=== PATIENT | male | born 1935 | race Caucasian/White ===

== ENCOUNTER 2018-02-18 15:01 | Observation (INO) ==
--- NOTE | 2018-02-18 15:22 | ERNOTE ---
Syncope ER HPI Stated Complaint: STROKE Time Seen by Provider: 02/18/18 15:01 Source: family, EMS Exam Limitations: clinical condition Immunizations: IMMUNIZATION HX Immunizations Up to Date Yes History of Influenza Vaccine No Hx Pneumococcal Vaccination No Allergies/Adverse Reactions: Allergies aspirin Allergy (Mild, Verified 02/18/18 17:17) Hives Home Medications: HOME MEDICATIONS Clopidogrel Bisulfate [Plavix] 75 mg PO DAILY 12/25/17 [Last Taken Unknown] Isosorbide Mononitrate [Imdur] 30 mg PO DAILY 12/25/17 [Last Taken Unknown] Losartan Potassium [Cozaar] 50 mg PO BID 12/25/17 [Last Taken Unknown] Pravastatin Sodium [Pravachol] 80 mg PO DAILY 12/25/17 [Last Taken Unknown] Solifenacin Succinate [Vesicare] 10 mg PO DAILY 12/25/17 [Last Taken Unknown] - History of Present Illness Narrative: EMS reports that patient was eating lunch with his when he collapsed around 14:05 and became unresponsive. On EMs arrival he was only responsive to painful stimilus, resisted insertion of oral airway though, on the ride over here patient slowly started to become more alert, followed some commands but didn't squeeze right hand. Stroke alert was called prior to arrival. Patient was seen in the ER two months ago for collapsing (unwitnessed?) Prior Episodes: Present: single episode today, recent history Activity at time of episode: Present: sitting Character of event: Present: became unresponsive Location of Injury: Present: none Prior Treament: Reports: recently seen, similar symptoms before Review of Systems - Review of Systems Constitutional: Absent: recent illness, chills ENT: Present: no symptoms reported Respiratory: Absent: shortness of breath Cardiology: Absent: chest pain Gastrointestinal/Abdominal: Absent: nausea, abdominal pain Genitourinary: Present: no symptoms reported Musculoskeletal: Absent: back pain, neck pain Neurological: Present: See HPI. Absent: headache Medical History (Last Updated 02/18/18 @ 19:14 by Jami Yi MD) CLL (chronic lymphocytic leukemia) Hyperlipidemia Hypertension Myocardial infarct Surgical History: Surgical History (Last Updated 02/18/18 @ 19:14 by Jami Yi MD) Pacemaker (Acute) History of coronary artery bypass graft x 1 History of colon resection Hx of cholecystectomy Social History: Preferred Language Mexican Physical Exam - Physical Exam General Appearance: Present: wd/wn, alert, no apparent distress Head Exam: Present: normal inspection Eye Exam: Normal inspection: bilateral, PERRL: bilateral, EOMI: bilateral Ears, Nose, Throat: Present: normal pharynx Respiratory: Present: no respiratory distress, normal breath sounds, lungs clear Cardiovascular/Chest: Present: regular rate, rhythm, no murmur Gastrointestinal/Abdominal: Present: nontender, nondistended Male Genitals Exam: Present: other - patient is incontinent of urine Extremity Exam: Present: no edema Neurological Exam: Present: alert, no motor/sensory deficits, facial droop - discret left facial droop (corner of mouth), other - patient follws commands, answers some questions appropiately, then gives the same answer for the next question Skin Exam: Present: normal color, warm/dry ED Progress - Results and Orders Patient's Lab Results:: I have reviewed the patient's lab results. - Vital Signs Patient's Vital Signs:: I have reviewed the patient's vital signs. Vital Signs: Vital Signs 02/18/18 15:02 Temperature 36.6 C Pulse Rate 70 Respiratory Rate 18 Blood Pressure 135/76 O2 Sat by Pulse Oximetry 99 - EKG EKG: unchanged from 12/2017, other - arterial pace EKG EKG read: Interp. by me - CT/Ultrasound CT/Ultrasound Narrative: no acute findings - Progress/Reassessment Progress Note-Subjective: 02/18/18 15:[address] with radiologist: no acute findings 02/18/18 15:47 patient alert, neuro exam normal patient now remembers lunch reports that patient had pacemaker implanted in 07/2107 while they were in [place] as he had recurrent syncopal episodes and HR down to the 30's pacemaker was checked three weeks ago ( through phone by pacemaker company) this is the third syncopal episodes the patient has had since pacemaker placement, was seen after the last one in the ER here two months ago, has followed up with PCP, neurologist and pain doctor since 02/18/18 17:20 discussed test results with patient and , offered admission, agreed patient feels back to normal 02/18/18 17:[address] Polanco,okay to admit for observation for syncope and hyponatremia order serum and urine osmolality, fluid restrictions to 750ml Departure Clinical Impression: Hyponatremia Syncope Qualifiers: Syncope type: unspecified Qualified Code(s): R55 - Syncope and collapse - Departure Disposition: Still a patient Condition: Fair
[2018-02-18 15:40] LABS: Hematocrit 39.4 % (42.0-52.0); Hemoglobin 13.1 gm/dL (13.5-18.0); Mean Cell Volume 91.6 fl (78-100); Mean Corpuscular Hemoglobin 30.5 pg (27-31); Mean Corpuscular Hgb Conc 33.2 g/dl (32-36); Mean Platelet Volume 9.6 fl (8-11.3); Platelet Count 245 K/mm3 (150-450); Red Cell Distribution Width 11.9 % (11.5-14.0); White Blood Count 46.2 K/mm3 (4.0-10.5)
[2018-02-18 15:42] LABS: Prothrombin Time (Patient) 9.9 Seconds (9.0-11.0); Total Cells Counted 100
[2018-02-18 15:44] LABS: INR 0.99 INR (0.90-1.10); Partial Thrombolplastin Time 22.9 Seconds (24-32)
[2018-02-18 15:50] LABS: ALT 21 U/L (19-67); AST 18 U/L (0-48); Albumin * 3.9 gm/dl (3.4-5.0); Alkaline Phosphatase * 45 U/L (50-170); Anion Gap 10.5 mmol/L (6.8-13.8); BUN/Creatinine Ratio 9.6 (9.0-21.6); Blood Urea Nitrogen 11 mg/dL (6-23); Ca. Corrected For Albumin 8.3 mg/dL (8.4-10.2); Calcium * 8.5 mg/dL (7.9-10.9); Carbon Dioxide 28.2 mmol/L (24-32.6); Chloride 91 mmol/L (97-106); Glucose * 121 mg/dL (70-110); Potassium 4.7 mmol/L (3.4-4.6); Sodium 125 mmol/L (132-142); Total Protein 6.5 gm/dL (6.2-8.2)
[2018-02-18 15:54] LABS: Troponin I Less than 0.017 ng/mL (0.00-0.10)
[2018-02-18 16:21] LABS: Atypical (Reactive) Lymph 5 % (0-2); Band 1 % (0-2.0); Lymphocyte 73 % (20-51); Monocyte 2 % (0-9); Neutrophil 19 % (42-75); Neutrophil # 8.8 K/mm3 (1.3-6.0)
[2018-02-18 16:22] LABS: Howell-Jolly Bodies Trace; Smudge Cells 25 /100 WBC (0-0)
[2018-02-18 16:42] LABS: Neutrophil # 8.5 K/mm3 (1.3-6.0); Neutrophil % 18.5 % (42-75.0)
--- NOTE | 2018-02-18 20:14 | HP ---
Chief Complaint - Chief Complaint Date of Service: 02/18/18 Time of Service: 20:14 Chief Complaint: syncope History of Present Illness: Moshe Cook, is an 82-year-old white male, with previous medical history of coronary artery disease status post CABG, CLL, hypertension, hyperlipidemia, pacemaker placement who was admitted on 02/18/2018 because of a syncopal episode. The patient after eating his late lunch passed out and slumped over the table and became unresponsive. The did not notice any abnormal twitchings or movements but did notice that he wet response. when MS came he was respnsove to painful stimulus only. They felt his right hand personal injury specialist was weak and they called a CVA alert. He was passed out for about 15 minutes and started waking up while being transported by the EMS. By the time he came to the emergency room patient was able to answer some questions appropriately and some inappropriately. His CT scan did not show any acute intracranial process. His white blood cell count was up to 46,000, platelet was within normal limits , mild anemia of 13.1, sodium of 125. His EKg showed paced rhythm, CXR showed no acute cardiopulmonary findings. The patient has had several syncopal attacks in the past and a pacemaker was placed for bradycardia in the 30's while hospitalized in [place] because during his hospital stay there for syncope not feces heart rate was running in the 30-35. He however has had another episode of for for syncope . After his pacemaker placement he was seen here in our hospital for syncope and diagnosed with dehydration. His pacemaker was checked 3 weeks ago through the phone by the pacemaker company and was told everything was working good. Since transferring to [place] they have established care with a vertica architect and anatomy professor/oncologist in [place], [place]. Before they placed his pacemaker, he had an MRI in [place] and it showed an old infract. He underwent PT/OT for right sided weakness. Medical History (Last Updated 02/18/18 @ 21:01 by Arely Alarcon RN) CVA (cerebral vascular accident) CLL (chronic lymphocytic leukemia) Hyperlipidemia Hypertension Myocardial infarct Surgical History: Surgical History (Last Updated 02/18/18 @ 19:46 by Arely Alarcon RN) Pacemaker (Acute) Hernia History of coronary artery bypass graft x 1 History of colon resection Hx of cholecystectomy Social History: Preferred Language Panamanian Do you have any latter-day or No cultural preference? Smoking Status Former smoker Alcohol Use sober Drug Use none Review Of Systems (GEN) - Review of Systems Generalized/Overall Review: Present: Weakness. Absent: Chills, Fever EENTM: Absent: Blurred Vision, Nose Congestion Respiratory: Absent: Cough, Shortness of Breath, Wheezing Cardiac: Present: Syncope. Absent: Chest Pain, Edema, Palpitations Abdominal: Absent: Nausea, Vomiting, Abdominal Pain Genitourinary: Absent: Urgency, Frequency Musculoskeletal: Absent: Joint Pain, Back Pain Neurological: Present: Weakness. Absent: Headache, Tingling Immunizations: IMMUNIZATION HX Immunizations Up to Date No History of Influenza Vaccine No Hx Pneumococcal Vaccination No Allergies/Adverse Reactions: Allergies Allergy/AdvReac Type Severity Reaction Status Date / Time aspirin Allergy Mild Hives Verified 02/18/18 17:17 Home Medications: HOME MEDICATIONS Clopidogrel Bisulfate [Plavix] 75 mg PO QAM 12/25/17 [Last Taken Unknown] Isosorbide Mononitrate [Imdur] 30 mg PO QAM 12/25/17 [Last Taken Unknown] Losartan Potassium [Cozaar] 50 mg PO BID 12/25/17 [Last Taken Unknown] Pravastatin Sodium [Pravachol] 80 mg PO QPM 12/25/17 [Last Taken Unknown] Solifenacin Succinate [Vesicare] 10 mg PO QPM 12/25/17 [Last Taken Unknown] Nitroglycerin 0.4 mg SL PRN 02/18/18 [Last Taken Unknown] Exam - Exam Vital Signs: Vital Signs - Last Taken Temp 36.8 C 02/18/18 19:30 Pulse 92 02/18/18 19:30 Resp 18 02/18/18 19:30 BP 112/54 02/18/18 19:30 Pulse Ox 100 02/18/18 19:30 Constitutional: Present: Alert, Oriented x3, Cooperative, Elderly ENT Exam: Present: hearing grossly normal Eye Exam: bilateral eye: normal inspection, PERRL, EOMI Neck: Present: supple Respiratory: Present: normal breath sounds, No rales, No wheezing Cardiovascular/Chest: Present: regular rate, rhythm, no JVD, no murmur Abdomen: Present: Normal bowel sounds, soft, nontender, nondistended Extremity: Present: no pedal edema, no calf tenderness Neurologic: Present: pharmacy technology instructor II-XII nml as tested, no motor/sensory deficits - Grade 4+/5 right UE/LE, Grade 5/5 left UE/LE, oriented x 3 Diagnostic Studies: Abnormal Lab Results 02/18/18 02/18/18 02/18/18 Range/Units 15:20 15:20 15:20 WBC 46.2 H (4.0-10.5) K/mm3 RBC 4.30 L (4.7-6.0) M/mm3 Hgb 13.1 L (13.5-18.0) gm/dL Hct 39.4 L (42.0-52.0) % Immature Gran # (Auto) 0.15 H (0.000-0.0310) K/mm3 Neutrophils % 18.5 L (42-75.0) % Neutrophils % (Manual) 19 L (42-75) % Lymphocytes % 78.9 H (20-51) % Lymphocytes % (Manual) 73 H (20-51) % Neutrophils # 8.5 H (1.3-6.0) K/mm3 Neutrophils # (Manual) 8.8 H (1.3-6.0) K/mm3 Lymphocytes # 36.27 H (1.5-3.5) k/mm3 Lymphocytes # (Manual) 33.7 H (1.5-3.5) k/mm3 Atypic/Reactive Lymphs 5 H (0-2) % Smudge Cells 25 H (0-0) /100 WBC Retic Hgb Content 37.1 H (29-35) pg PTT (Zeinab) 22.9 L (24-32) Seconds Sodium 125 L (132-142) mmol/L Plasma Sodium 125 L (130-142) mmol/L Potassium 4.7 H (3.4-4.6) mmol/L Chloride 91 L (97-106) mmol/L Random Glucose 121 H (70-110) mg/dL Calcium Adj for Albumin 8.3 L (8.4-10.2) mg/dL Alkaline Phosphatase 45 L (50-170) U/L Procalcitonin (0.05-0.50) ng/mL 02/18/18 Range/Units 15:20 WBC (4.0-10.5) K/mm3 RBC (4.7-6.0) M/mm3 Hgb (13.5-18.0) gm/dL Hct (42.0-52.0) % Immature Gran # (Auto) (0.000-0.0310) K/mm3 Neutrophils % (42-75.0) % Neutrophils % (Manual) (42-75) % Lymphocytes % (20-51) % Lymphocytes % (Manual) (20-51) % Neutrophils # (1.3-6.0) K/mm3 Neutrophils # (Manual) (1.3-6.0) K/mm3 Lymphocytes # (1.5-3.5) k/mm3 Lymphocytes # (Manual) (1.5-3.5) k/mm3 Atypic/Reactive Lymphs (0-2) % Smudge Cells (0-0) /100 WBC Retic Hgb Content (29-35) pg PTT (Mora) (24-32) Seconds Sodium (132-142) mmol/L Plasma Sodium (130-142) mmol/L Potassium (3.4-4.6) mmol/L Chloride (97-106) mmol/L Random Glucose (70-110) mg/dL Calcium Adj for Albumin (8.4-10.2) mg/dL Alkaline Phosphatase (50-170) U/L Procalcitonin Less than 0.05 L (0.05-0.50) ng/mL Laboratory Results WBC 46.2 K/mm3 (4.0-10.5) H 02/18/18 15:20 RBC 4.30 M/mm3 (4.7-6.0) L 02/18/18 15:20 Hgb 13.1 gm/dL (13.5-18.0) L 02/18/18 15:20 Hct 39.4 % (42.0-52.0) L 02/18/18 15:20 MCV 91.6 fl (78-100) 02/18/18 15:20 MCH 30.5 pg (27-31) 02/18/18 15:20 MCHC 33.2 g/dl (32-36) 02/18/18 15:20 RDW 11.9 % (11.5-14.0) 02/18/18 15:20 Plt Count 245 K/mm3 (150-450) 02/18/18 15:20 MPV 9.6 fl (8-11.3) 02/18/18 15:20 Immature Gran % (Auto) 0.30 % (0.001-0.429) 02/18/18 15:20 Immature Gran # (Auto) 0.15 K/mm3 (0.000-0.0310) H 02/18/18 15:20 Neutrophils % 18.5 % (42-75.0) L 02/18/18 15:20 Neutrophils % (Manual) 19 % (42-75) L 02/18/18 15:20 Band Neuts % (Manual) 1 % (0-2.0) 02/18/18 15:20 Lymphocytes % 78.9 % (20-51) H 02/18/18 15:20 Lymphocytes % (Manual) 73 % (20-51) H 02/18/18 15:20 Monocytes % 2.2 % (0.0-9) 02/18/18 15:20 Monocytes % (Manual) 2 % (0-9) 02/18/18 15:20 Eosinophils % 0.0 % (0.0-3.0) 02/18/18 15:20 Basophils % 0.1 % (0.0-1.0) 02/18/18 15:20 Nucleated RBC % 0.0 k/mm3 (0-1) 02/18/18 15:20 Neutrophils # 8.5 K/mm3 (1.3-6.0) H 02/18/18 15:20 Neutrophils # (Manual) 8.8 K/mm3 (1.3-6.0) H 02/18/18 15:20 Lymphocytes # 36.27 k/mm3 (1.5-3.5) H 02/18/18 15:20 Lymphocytes # (Manual) 33.7 k/mm3 (1.5-3.5) H 02/18/18 15:20 Monocytes # 1.0 k/mm3 (0.0-1.0) 02/18/18 15:20 Monocytes # (Manual) 0.9 k/mm3 (0.0-1.0) 02/18/18 15:20 Eosinophils # 0.0 k/mm3 (0.0-0.7) 02/18/18 15:20 Absolute Basophils 0.1 k/mm3 (0.0-0.1) 02/18/18 15:20 Atypic/Reactive Lymphs 5 % (0-2) H 02/18/18 15:20 Smudge Cells 25 /100 WBC (0-0) H 02/18/18 15:20 [place] Bodies Trace 02/18/18 15:20 Peripheral Blood Smear Smear sent to path. 02/18/18 15:20 ESR 3 mm/hr (0-10) 02/18/18 15:20 Absolute Retic 0.0631 02/18/18 15:20 Percent Retic 1.5 % (0.4-1.8) 02/18/18 15:20 Immature Retic Fraction 6.5 % (2.3-13.4) 02/18/18 15:20 Retic Hgb Content 37.1 pg (29-35) H 02/18/18 15:20 PT 9.9 Seconds (9.0-11.0) 02/18/18 15:20 INR (Anticoag Therapy) 0.99 INR (0.90-1.10) 02/18/18 15:20 PTT (Zeinab) 22.9 Seconds (24-32) L 02/18/18 15:20 Sodium 125 mmol/L (132-142) L 02/18/18 15:20 Plasma Sodium 125 mmol/L (130-142) L 02/18/18 15:20 Potassium 4.7 mmol/L (3.4-4.6) H 02/18/18 15:20 Chloride 91 mmol/L (97-106) L 02/18/18 15:20 Carbon Dioxide 28.2 mmol/L (24-32.6) 02/18/18 15:20 Anion Gap 10.5 mmol/L (6.8-13.8) 02/18/18 15:20 BUN 11 mg/dL (6-23) 02/18/18 15:20 Creatinine 1.14 mg/dL (0.4-1.4) 02/18/18 15:20 Est GFR (Non-Af Amer) 66 mL/min (60-130) 02/18/18 15:20 BUN/Creatinine Ratio 9.6 (9.0-21.6) 02/18/18 15:20 Random Glucose 121 mg/dL (70-110) H 02/18/18 15:20 Lactic Acid, Venous 1.9 mmol/L (0.4-2.0) 02/18/18 16:30 Calcium 8.5 mg/dL (7.9-10.9) 02/18/18 15:20 Calcium Adj for Albumin 8.3 mg/dL (8.4-10.2) L 02/18/18 15:20 Total Bilirubin 1.0 mg/dL (0.0-1.1) 02/18/18 15:20 AST 18 U/L (0-48) 02/18/18 15:20 ALT 21 U/L (19-67) 02/18/18 15:20 Alkaline Phosphatase 45 U/L (50-170) L 02/18/18 15:20 Troponin I Less than 0.017 ng/mL (0.00-0.10) 02/18/18 15:20 Total Protein 6.5 gm/dL (6.2-8.2) 02/18/18 15:20 Albumin 3.9 gm/dl (3.4-5.0) 02/18/18 15:20 Procalcitonin Less than 0.05 ng/mL (0.05-0.50) L 02/18/18 15:20 Assessment/Plan - Assessment/Plan (1) Syncope Assessment: probably postprandial hypotension r/o Seizure activity. I don't believe it is due to metabolic cause- hyponatremia or due to leukostasis. Will get orthostatic vital signs now and will do one tomorrow before his meal and 1 hour after his meal as well. If orhtostatic will start IVF. continue with telemetry. 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 will do fluid restriction to 750 ml/24 hours. remington get serum and urine osmolality, add TSH, lipid levels. will get UA and rine for Na. Problem: Acute (3) CLL (chronic lymphocytic leukemia) Assessment: WBC up to 40's from 18 in 07/2017. r/o conversion to ALL/AML. will await peripheral smear. will do UA and UCS if warranted. Problem: Chronic (4) CAD (coronary artery disease) Problem: Chronic Qualifiers: Coronary Disease-Associated Artery/Lesion type: bypass graft [place] vs. transplanted heart: [place] heart Associated angina: without angina Qualified Code(s): I25.810 - Atherosclerosis of coronary artery bypass graft(s) without angina pectoris (5) Hypertension Problem: Chronic Qualifiers: Hypertension type: essential hypertension Qualified Code(s): I10 - Essential (primary) hypertension (6) Hyperlipidemia Problem: Chronic Qualifiers: Hyperlipidemia type: mixed hyperlipidemia Qualified Code(s): E78.2 - Mixed hyperlipidemia (7) Pacemaker Assessment: chronic. pacemaker seems to be capturing and sensing. Problem: Chronic
[2018-02-18] MEDS ORDERED: NITROGLYCERIN 0.4 MG/TAB BTL SL PRN (21:15)
[2018-02-18 21:33] LABS: Chol/HDL Risk Ratio 1.9 mg/dL (3.3-5.0); TSH * 2.274 uIU/mL (0.358-3.74)
[2018-02-18 22:18] LABS: BUN/Creatinine Ratio 13.5 (9.0-21.6); Calcium * 8.3 mg/dL (7.9-10.9); Estimated Creat Clear 59.9
[2018-02-18] MEDS ORDERED: TOLTERODINE TARTRATE 2 MG CAPSULE PO ONE (22:48)
[2018-02-18] MEDS: ROSUVASTATIN CALCIUM 10 MG TABLET PO SCH (22:50)
[2018-02-18] MEDS: TOLTERODINE TARTRATE 4 MG CAPSULE PO SCH (22:51)
[2018-02-18 22:53] LABS: Urine Appearance Clear (CLEAR); Urine Bacteria TRACE; Urine Bilirubin Negative (NEGATIVE); Urine Blood Negative /ul (NEGATIVE); Urine Color Yellow; Urine Ketone Negative (NEGATIVE); Urine Nitrite Negative (NEGATIVE); Urine Protein Negative (NEGATIVE); Urine RBC None Seen /hpf (0-5); Urine Specific Gravity 1.015 SP.GR. (1.005-1.030); Urine Urobilinogen Normal (NORMAL); Urine WBC None Seen /hpf (0-5); Urine pH 6.5 pH (5.0-7.0)
[2018-02-18] MEDS: NORMAL SALINE 1,000 ML IV PRN (23:25)
--- NOTE | 2018-02-19 04:38 | PATHPSR ---
PHYSICIAN: Aki Polanco MD LAB#: [id number] SPECIMEN DATE: 02/19/2018 CLINICAL INFORMATION: The patient is an 82-year-old man with known history of chronic lymphocytic leukemia , coronary artery disease status post CABG, hypertension, hyperlipidemia, pacemaker placement is admitted because of a syncopal episode. WBC counts normally running at 18K/mm3 on 07/2017, current CBC shows WBC 46.2 K/mm3. Peripheral smear review by pathologist is ordered to exclude a blast crisis, ALL/AML conversion. CBC: WBC 46.2 K/mm3, hemoglobin 13.1 gm/dl, hematocrit 39.4 %, MCV is 91.6 fl, MCH is 30.5 pg, MCHC is 33.2 g/dl, Platelet count 245,000/mm3. Manual differential: Neutrophils 19 %, bands 1 %, lymphocytes 73 %, monocytes 2 %, eosinophils 0 %, basophils 0 %, atypical reactive lymphocytes 5 %. RED BLOOD CELLS: Trace [place] bodies PLATELETS: No abnormalities WHITE BLOOD CELLS: Relative and absolute lymphocytosis with abundant smudge cells (25%) DIAGNOSIS: PERIPHERAL BLOOD SMEAR, REVIEW BY PATHOLOGIST: -CHRONIC LYMPHOCYTIC LEUKEMIA, SEE COMMENT COMMENT: The findings are consistent with the clinical history provided of chronic lymphocytic leukemia. No evidence of blast conversion is seen on peripheral smear evaluation. Flow cytometry evaluation for chronic lymphocytic leukemia will give much more detailed information on the status of this patient' s chronic lymphocytic leukemia if clinically indicated. The findings are communicated by fax to Dr. Polanco on 02/19/2018.
[2018-02-19 05:18] LABS: Hematocrit 35.6 % (42.0-52.0); Hemoglobin 11.9 gm/dL (13.5-18.0); Mean Cell Volume 91.3 fl (78-100); Mean Corpuscular Hemoglobin 30.5 pg (27-31); Mean Corpuscular Hgb Conc 33.4 g/dl (32-36); Mean Platelet Volume 9.2 fl (8-11.3); Platelet Count 208 K/mm3 (150-450); Red Cell Distribution Width 11.9 % (11.5-14.0); White Blood Count 32.2 K/mm3 (4.0-10.5)
[2018-02-19 05:21] LABS: Total Cells Counted 100
[2018-02-19 05:29] LABS: Atypical (Reactive) Lymph 7 % (0-2); Lymphocyte 69 % (20-51); Monocyte 3 % (0-9); Neutrophil 21 % (42-75); Neutrophil # 6.8 K/mm3 (1.3-6.0); Platelet Estimate Normal (NORMAL); RBC Morphology Normal (NORMAL)
[2018-02-19 05:37] LABS: Anion Gap 8.3 mmol/L (6.8-13.8); BUN/Creatinine Ratio 12.2 (9.0-21.6); Calcium * 7.9 mg/dL (7.9-10.9); Carbon Dioxide 28.2 mmol/L (24-32.6); Estimated Creat Clear 63.6; Potassium 4.5 mmol/L (3.4-4.6)
[2018-02-19] MEDS: NORMAL SALINE 1,000 ML IV PRN ×2 (06:04→12:57)
[2018-02-19] MEDS ORDERED: CLOPIDOGREL BISULFATE 75 MG TABLET PO SCH (09:00)
--- NOTE | 2018-02-19 09:14 | PN ---
Progess Note - Interim Date: 02/19/18 Time: 09:11 Narrative: 02/19/18 09:11 Patient positive orthostasis. BP went down from 130/54 supine to 118/ 58 sitting and to 102/62 standing. WBC down to the 30's fromt he 40's. peripheral smear showed no blastic transformation. Na is up to 129 from 125. Continue IVF. Possible discharge this afternoon. Will likely schedule EEG as an outpatient due to h/o bladder leaking with 2 syncopal episodes. Will need to follow up with his outdoor illuminating engineer and Hematology/oncology earlier.
--- NOTE | 2018-02-19 16:51 | DS ---
(1) Syncope Diagnosis(s): likely due to postprandial hypotension as he had orthostasis on admission. Problem: Resolved Qualifiers: Syncope type: unspecified Qualified Code(s): R55 - Syncope and collapse (2) Hyponatremia Diagnosis(s): etiology? r/o SIADH. Problem: Acute (3) CLL (chronic lymphocytic leukemia) Problem: Chronic (4) CAD (coronary artery disease) Problem: Chronic Qualifiers: Coronary Disease-Associated Artery/Lesion type: bypass graft [place] vs. transplanted heart: [place] heart Associated angina: without angina Qualified Code(s): I25.810 - Atherosclerosis of coronary artery bypass graft(s) without angina pectoris (5) Hypertension Problem: Chronic Qualifiers: Hypertension type: essential hypertension Qualified Code(s): I10 - Essential (primary) hypertension (6) Hyperlipidemia Problem: Chronic Qualifiers: Hyperlipidemia type: mixed hyperlipidemia Qualified Code(s): E78.2 - Mixed hyperlipidemia (7) Pacemaker Problem: Chronic Description of Stay: Moshe Cook, is an 82-year-old white male, with previous medical history of coronary artery disease status post CABG, CLL, hypertension, hyperlipidemia, pacemaker placement who was admitted on 02/18/2018 because of a syncopal episode. The patient after eating his late lunch passed out and slumped over the table and became unresponsive. The did not notice any abnormal twitchings or movements but did notice that he wet response. when MS came he was respnsove to painful stimulus only. They felt his right hand chemical technician was weak and they called a CVA alert. He was passed out for about 15 minutes and started waking up while being transported by the EMS. By the time he came to the emergency room patient was able to answer some questions appropriately and some inappropriately. His CT scan did not show any acute intracranial process. His white blood cell count was up to 46,000, platelet was within normal limits , mild anemia of 13.1, sodium of 125. His EKg showed paced rhythm, CXR showed no acute cardiopulmonary findings. 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 He however has had another episode of for for syncope . After his pacemaker placement he was seen here in our hospital for syncope and diagnosed with dehydration. His pacemaker was checked 3 weeks ago through the phone by the pacemaker company and was told everything was working good. Since transferring to [place] they have established care with a oven technician and structural iron worker/oncologist in [place], [place]. 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 He underwent PT/OT for right sided weakness. He was positive for orthostasis and 0.9NSS IVF replacement was started. This afternoon his orthostatic vital signs were negative. His Na is up to 129 early this morning. His WBC is down to 33, 400 from [id number]+. He is asymptomatic now and stable. Will discharge him and make an earlier appointment with is oncologist and oven technician. Will also schedule him an EEg on outpatient basis becasue of his bladder leakage with the last 2 episodes of syncope. Procedures Performed: none Results and Findings: Lab Pending Results 02/18/18 15:20: WBC 46.2 H, RBC 4.30 L, Hgb 13.1 L, Hct 39.4 L, MCV 91.6, MCH 30.5, MCHC 33.2, RDW 11.9, Plt Count 245, MPV 9.6, Immature Gran % (Auto) 0.30, Immature Gran # (Auto) 0.15 H, Neutrophils % 18.5 L, Neutrophils % (Manual) 19 L , Band Neuts % (Manual) 1, Lymphocytes % 78.9 H, Lymphocytes % (Manual) 73 H, Monocytes % 2.2, Monocytes % (Manual) 2, Eosinophils % 0.0, Basophils % 0.1, Nucleated RBC % 0.0, Neutrophils # 8.5 H, Neutrophils # (Manual) 8.8 H, Lymphocytes # 36.27 H, Lymphocytes # (Manual) 33.7 H, Monocytes # 1.0, Monocytes # (Manual) 0.9, Eosinophils # 0.0, Absolute Basophils 0.1, Atypic/ Reactive Lymphs 5 H, Smudge Cells 25 H, [place] Bodies Trace, Absolute Retic 0.0631, Percent Retic 1.5, Immature Retic Fraction 6.5, Retic Hgb Content 37.1 H 02/18/18 15:20: ESR 3 02/18/18 15:20: PT 9.9, INR (Anticoag Therapy) 0.99, PTT (Zeinab) 22.9 L 09/10/18 15:20: Sodium 125 L, Plasma Sodium 125 L, Potassium 4.7 H, Chloride 91 L, Carbon Dioxide 28.2, Anion Gap 10.5, BUN 11, Creatinine 1.14, Est GFR (Non- Af Amer) 66, BUN/Creatinine Ratio 9.6, Random Glucose 121 H, Calcium 8.5, Calcium Adj for Albumin 8.3 L, Total Bilirubin 1.0, AST 18, ALT 21, Alkaline Phosphatase 45 L, Troponin I Less than 0.017, Total Protein 6.5, Albumin 3.9 02/18/18 15:20: Peripheral Blood Smear Smear sent to path. 02/18/18 15:20: Procalcitonin Less than 0.05 L 02/18/18 16:30: Lactic Acid, Venous 1.9 02/18/18 19:20: Ur Random Sodium 37 02/18/18 19:20: Urine Color Yellow, Urine Appearance Clear, Urine pH 6.5, Ur Specific [place] 1.015, Urine Protein Negative, Urine Glucose (UA) Negative, Urine Ketones Negative, Urine Blood Negative, Urine Nitrate Negative, Urine Bilirubin Negative, Urine Urobilinogen Normal, Ur Leukocyte Esterase Negative, Urine RBC None seen, Urine WBC None seen, Ur Epithelial Cells Trace, Urine Bacteria Trace 02/18/18 22:09: Sodium 126 L, Plasma Sodium 127 L, Potassium 4.0, Chloride 94 L , Carbon Dioxide 28.0, Anion Gap 8.0, BUN 14, Creatinine 1.04, Est GFR (Non-Af Amer) 73, BUN/Creatinine Ratio 13.5, Random Glucose 143 H, Calcium 8.3 02/18/18 : Triglycerides 49, Cholesterol 135, LDL Cholesterol 55 L, VLDL Cholesterol 10, HDL Cholesterol 70 H, Cholesterol/HDL Ratio 1.9 L, TSH 2.274 02/19/18 05:10: WBC 32.2 H D, RBC 3.90 L, Hgb 11.9 L, Hct 35.6 L, MCV 91.3, MCH 30.5, MCHC 33.4, RDW 11.9, Plt Count 208, MPV 9.2, Neutrophils % (Manual) 21 L, Lymphocytes % (Manual) 69 H, Monocytes % (Manual) 3, Neutrophils # (Manual) 6.8 H, Lymphocytes # (Manual) 22.2 H, Monocytes # (Manual) 1.0, Atypic/Reactive Lymphs 7 H, Platelet Estimate Normal, RBC Morphology Normal 02/19/18 05:10: Sodium 129 L, Plasma Sodium 129 L, Potassium 4.5, Chloride 97, Carbon Dioxide 28.2, Anion Gap 8.3, BUN 12, Creatinine 0.98, Est GFR (Non-Af Amer) 78, BUN/Creatinine Ratio 12.2, Random Glucose 92 D, Calcium 7.9 Discharge Location: Home Disposition: Home self-care Condition: Stable Discharge Activity: Activity as tolerated Discharge Diet: General/regular food Referrals: NONE,NONE [Primary Care Provider] - Additional Patient Instructions (free text): -Please make TCM appointment unless penitentiary discharge. Thank you! Arely @ [phone]. Please fax records and labs to Dr Turner's office at [phone]. Please include labs, D/C Summary, orders. Their office will call patient with appointment date/time. Appointment with Cardiology( Dr Taylor) on 02/28 at 3pm in [place]. Please fax records to [phone] including EKG, labs, D/C Summary, D/C orders. Schedule an EEG on outpatient basis. Complete Home Medications List: Complete Home Medication List: Clopidogrel Bisulfate [Plavix] 75 mg PO QAM 12/25/17 Isosorbide Mononitrate [Imdur] 30 mg PO QAM 12/25/17 Losartan Potassium [Cozaar] 50 mg PO BID 12/25/17 Pravastatin Sodium [Pravachol] 80 mg PO QPM 12/25/17 Solifenacin Succinate [Vesicare] 10 mg PO QPM 12/25/17 Nitroglycerin 0.4 mg SL PRN 02/18/18 Amb Orders for Discharge: Basic Metabolic Panel Time Frame: 02/22/18, Location: Laboratory
[2018-02-19] MEDS: ROSUVASTATIN CALCIUM 10 MG TABLET PO SCH (17:35)
[2018-02-19] MEDS: TOLTERODINE TARTRATE 4 MG CAPSULE PO SCH (17:35)
[2018-02-19 18:11] VITALS: BP 155/69
== END 2018-02-19 19:00 | disposition home or self-care (01) ==
LOC: ER 15:01 → MS 15:01
PROVIDERS: ADMIT Internal Medicine; ATTEND Internal Medicine
DX: I25.10 Atherosclerotic heart disease of native coronary artery without angina pectoris; R55 Syncope and collapse; Z68.20 Body mass index [BMI] 20.0-20.9, adult; I10 Essential (primary) hypertension; C91.10 Chronic lymphocytic leukemia of B-cell type not having achieved remission; Z95.1 Presence of aortocoronary bypass graft; E87.1 Hypo-osmolality and hyponatremia; E78.2 Mixed hyperlipidemia
CPT/HCPCS: 36415; 70450; 71010; 71045; 80048; 80053; 80061; 81001; 83605; 83930; 83935; 84145; 84300; 84443; 84484; 85025; 85045; 85610; 85652; 85730; 93005; 96360; 96361; 99284; G0378